=== PATIENT | male | born 1980 | race Caucasian/White ===

== ENCOUNTER 2017-09-15 15:27 | Emergency (ER) | payer MEDICARE, OTHER ==
[~2017-09-15] VITALS: Ht 175.3 cm; Wt 145.0 kg
[2017-09-15 15:35] VITALS: BP 121/58
[2017-09-15] MEDS ORDERED: bacitracin 15gm ointment TP ONE (16:55)
[2017-09-15] MEDS ORDERED: LIDOcaine 1.5% w/epinephrine 1:200,000 5ml ampul IJ ONE (16:55)
== END 2017-09-15 18:29 | disposition home or self-care (01) ==
LOC: ER 15:28
DX: S81.821A Laceration with foreign body, right lower leg, initial encounter (principal); S80.812A Abrasion, left lower leg, initial encounter; Z88.5 Allergy status to narcotic agent; W22.8XXA Striking against or struck by other objects, initial encounter; Y93.89 Activity, other specified; Y92.89 Other specified places as the place of occurrence of the external cause; Y99.8 Other external cause status
CPT/HCPCS: 12032; 99284; A6255; A6446; A6449; J3490